=== PATIENT | male | born 1950 | race American Indian/Alaskan Native ===

== ENCOUNTER 2016-12-20 09:15 | Emergency (ER) | payer MEDICARE, MEDICAID, OTHER ==
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
[2016-12-20] MEDS ORDERED: Sodium Chloride 0.9% 1,000 ML IV SCH (09:45)
[2016-12-20 10:20] LABS: CHLORIDE,CL 101 mmol/L (101-111); SODIUM,NA 140 mmol/L (135-145)
--- NOTE | 2017-01-30 14:57 | EKG ---
12/20/2016 - SIXTO CALDWELL - This is a standard 12-lead EKG showing normal sinus rhythm with ventricular rate 68 beats per minute. Normal NE interval and QRS duration. Normal axis. No acute ST-T changes. [facility] /[id number]
== END 2016-12-20 10:47 | disposition home or self-care (01) ==
LOC: DL.ED 09:15
DX: R53.1 Weakness (principal); R31.21 Asymptomatic microscopic hematuria; I10 Essential (primary) hypertension; F17.210 Nicotine dependence, cigarettes, uncomplicated; Z79.899 Other long term (current) drug therapy
CPT/HCPCS: 36415; 71020; 80053; 81001; 84484; 85025; 93005; 93010; 99285; J7030; 88112; 99284

== ENCOUNTER 2016-12-21 15:24 | Emergency (ER) | payer MEDICARE, MEDICAID, OTHER ==
[2016-12-21] MEDS ORDERED: Sodium Chloride 0.9% 10 ML Syringe FLUSH PRN (16:12)
[2016-12-21 16:45] LABS: CHLORIDE,CL 104 mmol/L (101-111); SODIUM,NA 141 mmol/L (135-145)
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
[2016-12-21] MEDS ORDERED: Sodium Chloride 0.9% 500 ML IV ONE (17:18)
[2016-12-21] MEDS ORDERED: Meclizine 12.5 MG Tab PO ONE (17:18)
--- NOTE | 2016-12-28 12:21 | EKG ---
12/21/2016 - SIXTO CALDWELL - This 12-lead EKG shows a normal sinus rhythm with a ventricular rate of 67. Normal axis and intervals. No acute ST-segment or T-wave changes. [facility] /[id number]
== END 2016-12-21 17:50 | disposition home or self-care (01) ==
LOC: DL.ED 15:24
DX: R55 Syncope and collapse (principal); F17.210 Nicotine dependence, cigarettes, uncomplicated; I10 Essential (primary) hypertension; Z79.899 Other long term (current) drug therapy
CPT/HCPCS: 36415; 70450; 80053; 84484; 85025; 93005; 93010; 99285; A9270; 99284

== ENCOUNTER 2016-12-28 08:15 | Emergency (ER) | payer MEDICARE, MEDICAID, OTHER ==
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
[2016-12-28 09:24] LABS: CHLORIDE,CL 99 mmol/L (101-111); SODIUM,NA 137 mmol/L (135-145)
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
--- NOTE | 2016-12-29 11:13 | EKG ---
12/28/2016 - SXITO CALDWELL R - TIME: 08:48 a.m. FINDINGS: The EKG shows normal sinus rhythm. [facility] /[id number]
== END 2016-12-28 10:05 | disposition home or self-care (01) ==
LOC: DL.ED 08:15
DX: R42 Dizziness and giddiness (principal); I10 Essential (primary) hypertension; Z87.891 Personal history of nicotine dependence; Z79.899 Other long term (current) drug therapy
CPT/HCPCS: 36415; 71010; 80053; 80305; 81001; 84484; 85025; 85379; 93005; 93010; 99284; 99285

== ENCOUNTER 2017-01-04 14:17 | Emergency (ER) | payer MEDICARE, MEDICAID, OTHER ==
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
[2017-01-04] MEDS ORDERED: Meclizine 12.5 MG Tab PO ONE ×2 (14:45→14:48)
--- NOTE | 2017-01-05 16:22 | EKG ---
01/04/2017 - SIXTO CALDWELL I reviewed the EKG and agree with the machine reading. [facility] /[id number]
== END 2017-01-04 15:04 | disposition left against medical advice (07) ==
LOC: DL.ED 14:17
DX: R42 Dizziness and giddiness (principal); I10 Essential (primary) hypertension; Z87.891 Personal history of nicotine dependence; Z79.899 Other long term (current) drug therapy
CPT/HCPCS: 93005; 93010; 99284

== ENCOUNTER 2018-05-24 23:27 | Emergency (ER) | payer MEDICAID, MEDICARE ==
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
[2018-05-25 00:55] LABS: ANION GAP 12.7; CHLORIDE,CL 96 mmol/L (101-111); SODIUM,NA 129 mmol/L (135-145)
[2018-05-25] MEDS ORDERED: Sodium Chloride 0.9% 1,000 ML IV ONE (01:57)
== END 2018-05-25 02:28 ==
LOC: DL.ED 23:27
DX: R56.9 Unspecified convulsions (principal); I10 Essential (primary) hypertension; Z79.899 Other long term (current) drug therapy
CPT/HCPCS: 36415; 70450; 71045; 80053; 80305; 81001; 83605; 84484; 85025; 87040; 93005; 99285; G0480; J7030

== ENCOUNTER 2019-07-09 19:06 | Emergency (ER) | payer MEDICARE ==
[2019-07-09] MEDS: MVI, Adult with Vitamin K 10 ML, Folic Acid 1 MG, Thiamine 100 MG in Lactated Ringers 1... IV ONE ×4 (19:14)
[2019-07-09] MEDS: Sodium Chloride 0.9% 10 ML Syringe FLUSH PRN (19:15)
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
[2019-07-09 19:39] LABS: ANION GAP 12.1 mEq/L (7-13); CHLORIDE,CL 99 mmol/L (98-107); SODIUM,NA 136 mmol/L (136-145)
[2019-07-09] MEDS: Midazolam 1 MG/ML 2 ML SDV IVPUSH ONE (20:33)
[2019-07-09] MEDS ORDERED: Propofol 200 MG/20 ML SDV IV ONE (23:59)
[2019-07-10] MEDS: Sodium Chloride 0.9% 1,000 ML IV ONE (00:30)
== END 2019-07-10 02:36 ==
LOC: DL.ED 19:06
DX: S43.015A Anterior dislocation of left humerus, initial encounter (principal); S00.81XA Abrasion of other part of head, initial encounter; F10.129 Alcohol abuse with intoxication, unspecified; Y90.8 Blood alcohol level of 240 mg/100 ml or more; I10 Essential (primary) hypertension; Z79.899 Other long term (current) drug therapy
CPT/HCPCS: 23650; 36415; 70450; 72125; 73020; 73030; 80053; 80305; 80307; 81001; 85025; 96361; 96365; 96375; 99152; 99153; 99284; J2250; J2704; J3411; J7030; J7120; J3490

== ENCOUNTER 2021-09-29 18:04 | Emergency (ER) | payer MEDICARE ==
[2021-09-29 19:20] LABS: ANION GAP 11.7 mEq/L (7-13); CHLORIDE,CL 101 mmol/L (98-107); SODIUM,NA 135 mmol/L (136-145)
[2021-09-29 19:28] LABS: ESTIMATED GFR 81 mL/min (>=60)
[2021-09-29 19:30] LABS: ACETAMINOPHEN < 0 ug/mL (10-30 (Therapeutic))
[2021-09-29 20:11] LABS: AMPHETAMINES,URINE NEGATIVE (NEGATIVE); BARBITURATES,URINE NEGATIVE (NEGATIVE); BENZODIAZEPINE,URINE NEGATIVE (NEGATIVE); MDMA (ECSTASY), URINE NEGATIVE (NEGATIVE); METHADONE,URINE NEGATIVE (NEGATIVE); METHAMPHETAMINES,URINE NEGATIVE (NEGATIVE); OPIATES,URINE NEGATIVE (NEGATIVE); OXYCODONE,URINE NEGATIVE (NEGATIVE); PHENCYCLIDINE,URINE NEGATIVE (NEGATIVE); TCA,URINE NEGATIVE (NEGATIVE)
[2021-09-29] MEDS ORDERED: Iopamidol 612 MG/ML 100 ML Bottle IVPUSH ONE (20:21)
[2021-09-29] MEDS ORDERED: Sodium Chloride 0.9% 1,000 ML IV ONE (20:21)
[2021-09-29] MEDS ORDERED: Famotidine 20 MG/2 ML SDV IVPUSH ONE (20:21)
[2021-09-29] MEDS ORDERED: Ketorolac 30 MG/ML SDV IVPUSH ONE (21:25)
== END 2021-09-30 00:20 | disposition home or self-care (01) ==
LOC: DL.ED 18:04
DX: K70.30 Alcoholic cirrhosis of liver without ascites (principal); K21.9 Gastro-esophageal reflux disease without esophagitis; R11.0 Nausea; I10 Essential (primary) hypertension; Z79.899 Other long term (current) drug therapy; Z20.822 Contact with and (suspected) exposure to COVID-19
CPT/HCPCS: 36415; 71260; 73090; 74177; 80053; 80143; 80179; 80305; 80307; 81001; 82140; 82150; 83605; 83690; 84484; 85025; 85379; 86140; 87040; 93005; 93010; 96361; 96374; 96375; 99284; J1885; J3490; J7030; Q9967; U0002

== ENCOUNTER 2021-10-19 22:08 | Inpatient (IN) | payer MEDICARE ==
[2021-10-19 23:52] LABS: ANION GAP 14.2 mEq/L (7-13); CHLORIDE,CL 98 mmol/L (98-107); SODIUM,NA 132 mmol/L (136-145)
[2021-10-19 23:54] LABS: ESTIMATED GFR 94 mL/min (>=60)
[2021-10-20 02:11] LABS: AMPHETAMINES,URINE NEGATIVE (NEGATIVE); BARBITURATES,URINE NEGATIVE (NEGATIVE); BENZODIAZEPINE,URINE NEGATIVE (NEGATIVE); MDMA (ECSTASY), URINE NEGATIVE (NEGATIVE); METHADONE,URINE NEGATIVE (NEGATIVE); METHAMPHETAMINES,URINE NEGATIVE (NEGATIVE); OPIATES,URINE NEGATIVE (NEGATIVE); OXYCODONE,URINE NEGATIVE (NEGATIVE); PHENCYCLIDINE,URINE NEGATIVE (NEGATIVE); TCA,URINE NEGATIVE (NEGATIVE)
[2021-10-20] MEDS ORDERED: Ondansetron 4 MG/2 ML SDV IVPUSH PRN (05:59)
[2021-10-20] MEDS ORDERED: Albuterol/Ipratropium 3.0-0.5 MG/3 ML Neb Soln NEB PRN (05:59)
[2021-10-20] MEDS ORDERED: Docusate Sodium 100 MG Cap PO PRN (05:59)
[2021-10-20] MEDS ORDERED: Acetaminophen 325 MG Tab PO PRN (05:59)
[2021-10-20] MEDS ORDERED: Melatonin 3 MG Tab PO PRN (06:04)
[2021-10-20] MEDS ORDERED: Calcium Carbonate 500 MG Tab.Chew PO PRN (06:05)
[2021-10-20] MEDS: Acetaminophen/HYDROcodone 325-5 MG Tab PO PRN ×2 (06:34→19:25)
[2021-10-20] MEDS: Enoxaparin 40 MG/0.4 ML Syringe SUBCUT SCH (08:36)
[2021-10-20] MEDS: Lisinopril 10 MG Tab PO SCH (12:39)
[2021-10-20] MEDS: Nicotine 14 MG/24 Hr Patch TRDERM SCH (12:39)
[2021-10-21] MEDS: Acetaminophen/HYDROcodone 325-5 MG Tab PO PRN ×3 (00:34→23:57)
[2021-10-21 07:12] LABS: ANION GAP 12.2 mEq/L (7-13)
[2021-10-21] MEDS: Lisinopril 10 MG Tab PO SCH (08:41)
[2021-10-21] MEDS: Enoxaparin 40 MG/0.4 ML Syringe SUBCUT SCH (08:43)
[2021-10-21] MEDS: Nicotine 14 MG/24 Hr Patch TRDERM SCH (08:43)
[2021-10-21] MEDS ORDERED: Temazepam 15 MG Cap PO PRN (23:04)
[2021-10-21] MEDS ORDERED: diphenhydrAMINE 50 MG/ML SDV IVPUSH ONE (23:05)
[2021-10-22] MEDS: Nicotine 14 MG/24 Hr Patch TRDERM SCH (08:22)
[2021-10-22] MEDS: Lisinopril 10 MG Tab PO SCH (08:23)
[2021-10-22] MEDS: Enoxaparin 40 MG/0.4 ML Syringe SUBCUT SCH (08:24)
== END 2021-10-22 11:40 | disposition home or self-care (01) | DRG 557 ==
LOC: DL.ED 22:08 → DL.MS 10-20 03:44
PROVIDERS: ADMIT Internal Medicine; ATTEND Internal Medicine
DX: M62.50 Muscle wasting and atrophy, not elsewhere classified, unspecified site (principal); R53.1 Weakness; R62.7 Adult failure to thrive; U07.1 COVID-19; S09.8XXA Other specified injuries of head, initial encounter; W19.XXXA Unspecified fall, initial encounter; E87.1 Hypo-osmolality and hyponatremia; I10 Essential (primary) hypertension; F17.210 Nicotine dependence, cigarettes, uncomplicated; E88.09 Other disorders of plasma-protein metabolism, not elsewhere classified; F12.10 Cannabis abuse, uncomplicated; K57.90 Diverticulosis of intestine, part unspecified, without perforation or abscess without bleeding; J44.9 Chronic obstructive pulmonary disease, unspecified; K21.9 Gastro-esophageal reflux disease without esophagitis; K70.30 Alcoholic cirrhosis of liver without ascites; M54.9 Dorsalgia, unspecified; G89.29 Other chronic pain; H54.7 Unspecified visual loss; Z79.899 Other long term (current) drug therapy
CPT/HCPCS: 36415 ×2; 70450; 71045; 80053; 80305; 80307; 83605; 84484; 85025; 85379; 93005; 99285; U0002; 80048; 81001; 82140; 82306; 82550; 93010; 97161-GP; 97166-GO; 99222; 99232; 99238; 99284; A9270-GY; J1200; J1650

== ENCOUNTER 2021-10-30 09:42 | Inpatient (IN) | payer MEDICARE, MEDICAID ==
[2021-10-30] MEDS ORDERED: Sodium Chloride 0.9% 1,000 ML IV ONE ×2 (09:55→10:44)
[2021-10-30] MEDS: Sodium Chloride 0.9% 10 ML Syringe FLUSH PRN (10:09)
[2021-10-30 10:41] LABS: ALLEN TEST PERFORMED; O2 DELIVERY DEVICE ROOM AIR
[2021-10-30 10:42] LABS: BASE EXCESS ARTERIAL 4 mmol/L ((-2)-(+3)); BICARBONATE,ARTERIAL 20.1 mmol/L (22-26); O2 SATURATION ARTERIAL 98 % (95-100); PCO2 ARTERIAL 30 mmHg (35-45); PO2 ARTERIAL 93 mmHg (70-100)
[2021-10-30 10:56] LABS: ANION GAP 15.8 mEq/L (7-13); CHLORIDE,CL 98 mmol/L (98-107); SODIUM,NA 135 mmol/L (136-145)
[2021-10-30 10:59] LABS: ESTIMATED GFR 83 mL/min (>=60)
[2021-10-30] MEDS ORDERED: cefTRIAXone 2 GM in Sodium Chloride 0.9% 100 ML IV ONE (11:16)
[2021-10-30 11:25] LABS: AMPHETAMINES,URINE NEGATIVE (NEGATIVE); BARBITURATES,URINE NEGATIVE (NEGATIVE); BENZODIAZEPINE,URINE NEGATIVE (NEGATIVE); MDMA (ECSTASY), URINE NEGATIVE (NEGATIVE); METHADONE,URINE NEGATIVE (NEGATIVE); METHAMPHETAMINES,URINE NEGATIVE (NEGATIVE); OPIATES,URINE NEGATIVE (NEGATIVE); OXYCODONE,URINE NEGATIVE (NEGATIVE); PHENCYCLIDINE,URINE NEGATIVE (NEGATIVE); TCA,URINE NEGATIVE (NEGATIVE)
[2021-10-30] MEDS: Gentamicin 0.3% Ophth Soln 5 ML Bottle EYEBOTH SCH ×2 (12:39→20:57)
[2021-10-30] MEDS: Sodium Chloride 0.9% 1,000 ML IV SCH ×2 (12:41→21:03)
[2021-10-30] MEDS ORDERED: Polyethylene Glycol 3350 Powder 17 GM Packet PO PRN (13:33)
[2021-10-30] MEDS ORDERED: HYDROmorphone 0.5 MG/0.5 ML Syringe IVPUSH PRN (13:33)
[2021-10-30] MEDS ORDERED: Ondansetron 4 MG/2 ML SDV IVPUSH PRN (13:33)
[2021-10-30] MEDS ORDERED: Ketorolac 30 MG/ML SDV IVPUSH PRN (13:33)
[2021-10-30] MEDS ORDERED: Magnesium Hydroxide 400 MG/5 ML Susp 30 ML Cup PO PRN (13:33)
[2021-10-30] MEDS ORDERED: Albuterol/Ipratropium 3.0-0.5 MG/3 ML Neb Soln NEB PRN (13:33)
[2021-10-30] MEDS: Acetaminophen/HYDROcodone 325-5 MG Tab PO PRN (17:07)
[2021-10-30] MEDS: Ergocalciferol (Vitamin D2) 1.25 MG Cap PO SCH (17:07)
[2021-10-30] MEDS: Saccharomyces Boulardii (Probiotic) 250 MG Cap PO SCH (20:56)
[2021-10-30] MEDS: Bacitracin/Neomycin/Polymyxin B Oint 28.4 GM Tube TOP SCH (21:05)
[2021-10-31] MEDS: Sodium Chloride 0.9% 1,000 ML IV SCH (05:37)
[2021-10-31 07:12] LABS: ANION GAP 14.5 mEq/L (7-13)
[2021-10-31] MEDS ORDERED: Magnesium Sulfate/Water 2 GM in Premix Bag 1 BAG IV ONE (08:07)
[2021-10-31] MEDS: Saccharomyces Boulardii (Probiotic) 250 MG Cap PO SCH ×2 (09:25→21:32)
[2021-10-31] MEDS: cefTRIAXone 1 GM in Sodium Chloride 0.9% 50 ML IV SCH (09:25)
[2021-10-31] MEDS: Acetaminophen/HYDROcodone 325-5 MG Tab PO PRN ×2 (09:41→16:11)
[2021-10-31] MEDS: Bacitracin/Neomycin/Polymyxin B Oint 28.4 GM Tube TOP SCH ×2 (09:44→21:33)
[2021-10-31] MEDS: Gentamicin 0.3% Ophth Soln 5 ML Bottle EYEBOTH SCH ×3 (09:47→21:33)
[2021-10-31] MEDS: Nicotine 21 MG/24 Hr Patch TRDERM SCH (10:10)
[2021-10-31] MEDS: Check Patch TRDERM SCH (21:36)
[2021-11-01 07:14] LABS: ANION GAP 15.2 mEq/L (7-13)
[2021-11-01] MEDS ORDERED: Potassium Chloride 10 MEQ Tab.ER PO ONE (08:16)
[2021-11-01] MEDS: Sodium Chloride 0.9% 10 ML Syringe FLUSH PRN (08:36)
[2021-11-01] MEDS: cefTRIAXone 1 GM in Sodium Chloride 0.9% 50 ML IV SCH (08:37)
[2021-11-01] MEDS: Saccharomyces Boulardii (Probiotic) 250 MG Cap PO SCH ×2 (08:39→21:22)
[2021-11-01] MEDS: Nicotine 21 MG/24 Hr Patch TRDERM SCH (08:39)
[2021-11-01] MEDS: Gentamicin 0.3% Ophth Soln 5 ML Bottle EYEBOTH SCH ×3 (08:44→21:22)
[2021-11-01] MEDS: Bacitracin/Neomycin/Polymyxin B Oint 28.4 GM Tube TOP SCH ×2 (08:45→21:22)
[2021-11-01] MEDS: Check Patch TRDERM SCH (21:23)
[2021-11-02 06:41] LABS: ANION GAP 12.6 mEq/L (7-13)
[2021-11-02] MEDS ORDERED: Potassium Chloride 10 MEQ Tab.ER PO SCH (08:00)
[2021-11-02] MEDS: cefTRIAXone 1 GM in Sodium Chloride 0.9% 50 ML IV SCH (08:16)
[2021-11-02] MEDS: Nicotine 21 MG/24 Hr Patch TRDERM SCH (08:17)
[2021-11-02] MEDS: Saccharomyces Boulardii (Probiotic) 250 MG Cap PO SCH ×2 (08:17→20:41)
[2021-11-02] MEDS: Bacitracin/Neomycin/Polymyxin B Oint 28.4 GM Tube TOP SCH ×2 (08:18→20:48)
[2021-11-02] MEDS: Gentamicin 0.3% Ophth Soln 5 ML Bottle EYEBOTH SCH ×3 (08:20→20:47)
[2021-11-02] MEDS: Acetaminophen/HYDROcodone 325-5 MG Tab PO PRN (20:42)
[2021-11-02] MEDS: Check Patch TRDERM SCH (20:50)
[2021-11-03 06:46] LABS: ANION GAP 11.2 mEq/L (7-13)
[2021-11-03] MEDS: Saccharomyces Boulardii (Probiotic) 250 MG Cap PO SCH ×2 (08:28→22:08)
[2021-11-03] MEDS: Acetaminophen 325 MG Tab PO PRN (08:28)
[2021-11-03] MEDS: Bacitracin/Neomycin/Polymyxin B Oint 28.4 GM Tube TOP SCH ×2 (08:29→22:08)
[2021-11-03] MEDS: cefTRIAXone 1 GM in Sodium Chloride 0.9% 50 ML IV SCH (08:30)
[2021-11-03] MEDS: Gentamicin 0.3% Ophth Soln 5 ML Bottle EYEBOTH SCH ×3 (08:30→22:08)
[2021-11-03] MEDS: Nicotine 21 MG/24 Hr Patch TRDERM SCH (08:32)
[2021-11-03] MEDS: Acetaminophen/HYDROcodone 325-5 MG Tab PO PRN (19:35)
[2021-11-03] MEDS: Check Patch TRDERM SCH (22:09)
[2021-11-03] MEDS: Sodium Chloride 0.9% 10 ML Syringe FLUSH PRN (22:11)
[2021-11-04] MEDS: Nicotine 21 MG/24 Hr Patch TRDERM SCH (08:49)
[2021-11-04] MEDS: Saccharomyces Boulardii (Probiotic) 250 MG Cap PO SCH ×2 (08:50→20:20)
[2021-11-04] MEDS: Acetaminophen/HYDROcodone 325-5 MG Tab PO PRN ×2 (08:56→20:21)
[2021-11-04] MEDS: Bacitracin/Neomycin/Polymyxin B Oint 28.4 GM Tube TOP SCH ×2 (08:56→20:22)
[2021-11-04] MEDS: Gentamicin 0.3% Ophth Soln 5 ML Bottle EYEBOTH SCH ×3 (08:56→20:22)
[2021-11-04] MEDS: Check Patch TRDERM SCH (20:21)
[2021-11-05] MEDS: Bacitracin/Neomycin/Polymyxin B Oint 28.4 GM Tube TOP SCH ×2 (09:51→20:32)
[2021-11-05] MEDS: Gentamicin 0.3% Ophth Soln 5 ML Bottle EYEBOTH SCH (09:52)
[2021-11-05] MEDS: Saccharomyces Boulardii (Probiotic) 250 MG Cap PO SCH (09:52)
[2021-11-05] MEDS: Nicotine 21 MG/24 Hr Patch TRDERM SCH (09:53)
[2021-11-05] MEDS: Acetaminophen/HYDROcodone 325-5 MG Tab PO PRN ×2 (10:47→20:32)
[2021-11-05] MEDS: Check Patch TRDERM SCH (20:33)
[2021-11-06] MEDS: Acetaminophen/HYDROcodone 325-5 MG Tab PO PRN ×2 (07:52→21:26)
[2021-11-06] MEDS: Bacitracin/Neomycin/Polymyxin B Oint 28.4 GM Tube TOP SCH ×2 (09:08→21:27)
[2021-11-06] MEDS: Nicotine 21 MG/24 Hr Patch TRDERM SCH (09:08)
[2021-11-06] MEDS: Ergocalciferol (Vitamin D2) 1.25 MG Cap PO SCH (09:08)
[2021-11-06] MEDS: Check Patch TRDERM SCH (21:28)
[2021-11-07] MEDS: Acetaminophen/HYDROcodone 325-5 MG Tab PO PRN ×2 (08:48→22:04)
[2021-11-07] MEDS: Nicotine 21 MG/24 Hr Patch TRDERM SCH (08:50)
[2021-11-07] MEDS: Bacitracin/Neomycin/Polymyxin B Oint 28.4 GM Tube TOP SCH ×2 (08:53→21:52)
[2021-11-07] MEDS: Check Patch TRDERM SCH (21:39)
[2021-11-08] MEDS: Bacitracin/Neomycin/Polymyxin B Oint 28.4 GM Tube TOP SCH ×2 (09:21→21:04)
[2021-11-08] MEDS: Nicotine 21 MG/24 Hr Patch TRDERM SCH (09:21)
[2021-11-08] MEDS: Acetaminophen/HYDROcodone 325-5 MG Tab PO PRN ×2 (16:22→21:04)
[2021-11-08] MEDS: Check Patch TRDERM SCH (20:55)
[2021-11-09] MEDS: Nicotine 21 MG/24 Hr Patch TRDERM SCH (09:10)
[2021-11-09] MEDS: Bacitracin/Neomycin/Polymyxin B Oint 28.4 GM Tube TOP SCH ×2 (09:11→21:39)
[2021-11-09] MEDS: Acetaminophen 325 MG Tab PO PRN (13:14)
[2021-11-09] MEDS: Acetaminophen/HYDROcodone 325-5 MG Tab PO PRN ×2 (17:09→21:37)
[2021-11-09] MEDS: Check Patch TRDERM SCH (21:39)
[2021-11-10] MEDS: Acetaminophen/HYDROcodone 325-5 MG Tab PO PRN (08:50)
[2021-11-10] MEDS: Nicotine 21 MG/24 Hr Patch TRDERM SCH (08:51)
[2021-11-10] MEDS: Bacitracin/Neomycin/Polymyxin B Oint 28.4 GM Tube TOP SCH ×2 (08:52→20:14)
[2021-11-10] MEDS: Check Patch TRDERM SCH (20:15)
[2021-11-11] MEDS: Acetaminophen/HYDROcodone 325-5 MG Tab PO PRN ×3 (00:21→14:35)
[2021-11-11] MEDS: Acetaminophen 325 MG Tab PO PRN (04:22)
[2021-11-11] MEDS: Nicotine 21 MG/24 Hr Patch TRDERM SCH (08:38)
[2021-11-11] MEDS: Bacitracin/Neomycin/Polymyxin B Oint 28.4 GM Tube TOP SCH ×2 (08:42→20:27)
[2021-11-11 10:32] LABS: ANION GAP 9.1 mEq/L (7-13)
[2021-11-11] MEDS: hydrOXYzine HCl 25 MG Tab PO PRN ×2 (15:02→20:26)
[2021-11-11] MEDS: Check Patch TRDERM SCH (22:14)
[2021-11-12] MEDS: Acetaminophen/HYDROcodone 325-5 MG Tab PO PRN ×3 (08:58→20:39)
[2021-11-12] MEDS: hydrOXYzine HCl 25 MG Tab PO PRN ×3 (08:59→20:39)
[2021-11-12] MEDS: Nicotine 21 MG/24 Hr Patch TRDERM SCH (09:00)
[2021-11-12] MEDS: Bacitracin/Neomycin/Polymyxin B Oint 28.4 GM Tube TOP SCH ×2 (09:04→20:35)
[2021-11-12] MEDS: Check Patch TRDERM SCH (20:35)
[2021-11-13] MEDS: hydrOXYzine HCl 25 MG Tab PO PRN (04:06)
[2021-11-13] MEDS: Nicotine 21 MG/24 Hr Patch TRDERM SCH (08:41)
[2021-11-13] MEDS: Ergocalciferol (Vitamin D2) 1.25 MG Cap PO SCH (08:42)
[2021-11-13] MEDS: Bacitracin/Neomycin/Polymyxin B Oint 28.4 GM Tube TOP SCH ×2 (08:44→20:21)
[2021-11-13] MEDS: Check Patch TRDERM SCH (20:21)
[2021-11-13] MEDS: Acetaminophen/HYDROcodone 325-5 MG Tab PO PRN (20:31)
[2021-11-13] MEDS ORDERED: hydrOXYzine HCl 25 MG Tab PO ONE (23:31)
[2021-11-14] MEDS: Bacitracin/Neomycin/Polymyxin B Oint 28.4 GM Tube TOP SCH ×2 (08:50→21:02)
[2021-11-14] MEDS: hydrOXYzine HCl 25 MG Tab PO PRN ×2 (08:50→21:02)
[2021-11-14] MEDS: Nicotine 21 MG/24 Hr Patch TRDERM SCH (08:50)
[2021-11-14] MEDS ORDERED: NICOTINE GUM PO PRN (16:16)
[2021-11-14] MEDS: Acetaminophen/HYDROcodone 325-5 MG Tab PO PRN (21:02)
[2021-11-14] MEDS: Check Patch TRDERM SCH (21:04)
[2021-11-15] MEDS: Acetaminophen/HYDROcodone 325-5 MG Tab PO PRN ×3 (03:01→18:35)
[2021-11-15] MEDS: hydrOXYzine HCl 25 MG Tab PO PRN (05:36)
[2021-11-15] MEDS: Nicotine 21 MG/24 Hr Patch TRDERM SCH (08:49)
[2021-11-15] MEDS: Bacitracin/Neomycin/Polymyxin B Oint 28.4 GM Tube TOP SCH ×2 (08:54→21:15)
[2021-11-15] MEDS: Check Patch TRDERM SCH (21:16)
[2021-11-15] MEDS: Enoxaparin 40 MG/0.4 ML Syringe SUBCUT SCH (21:22)
[2021-11-16] MEDS: hydrOXYzine HCl 25 MG Tab PO PRN ×3 (04:04→20:55)
[2021-11-16] MEDS: Nicotine 21 MG/24 Hr Patch TRDERM SCH (08:03)
[2021-11-16] MEDS: Enoxaparin 40 MG/0.4 ML Syringe SUBCUT SCH (08:04)
[2021-11-16] MEDS: Bacitracin/Neomycin/Polymyxin B Oint 28.4 GM Tube TOP SCH ×2 (08:06→20:55)
[2021-11-16] MEDS ORDERED: Emollient Combination No.71 177 ML Bottle TOP PRN ×2 (11:55→13:48)
[2021-11-16] MEDS: Check Patch TRDERM SCH (20:52)
[2021-11-16] MEDS: Acetaminophen/HYDROcodone 325-5 MG Tab PO PRN (21:59)
[2021-11-17] MEDS: Enoxaparin 40 MG/0.4 ML Syringe SUBCUT SCH (10:09)
[2021-11-17] MEDS: Nicotine 21 MG/24 Hr Patch TRDERM SCH (10:09)
[2021-11-17] MEDS: Bacitracin/Neomycin/Polymyxin B Oint 28.4 GM Tube TOP SCH (10:10)
[2021-11-17] MEDS: Acetaminophen/HYDROcodone 325-5 MG Tab PO PRN (10:20)
[2021-11-17] MEDS: hydrOXYzine HCl 25 MG Tab PO PRN (10:21)
== END 2021-11-17 14:00 | disposition swing bed (61) | DRG 689 ==
LOC: DL.ED 09:42 → DL.MS 13:14
PROVIDERS: ADMIT Internal Medicine; ATTEND Internal Medicine
DX: N30.00 Acute cystitis without hematuria (principal); R53.1 Weakness; E43 Unspecified severe protein-calorie malnutrition; R64 Cachexia; Z68.1 Body mass index [BMI] 19.9 or less, adult; E87.1 Hypo-osmolality and hyponatremia; F12.90 Cannabis use, unspecified, uncomplicated; F17.200 Nicotine dependence, unspecified, uncomplicated; E87.6 Hypokalemia; E83.42 Hypomagnesemia; R26.9 Unspecified abnormalities of gait and mobility; M43.16 Spondylolisthesis, lumbar region; E55.9 Vitamin D deficiency, unspecified; E88.09 Other disorders of plasma-protein metabolism, not elsewhere classified; K21.9 Gastro-esophageal reflux disease without esophagitis; M54.9 Dorsalgia, unspecified; R62.7 Adult failure to thrive; J44.9 Chronic obstructive pulmonary disease, unspecified; G89.29 Other chronic pain; I10 Essential (primary) hypertension; K57.90 Diverticulosis of intestine, part unspecified, without perforation or abscess without bleeding; M25.9 Joint disorder, unspecified; Z86.16 Personal history of COVID-19; Z28.82 Immunization not carried out because of caregiver refusal; Z79.899 Other long term (current) drug therapy
CPT/HCPCS: 36415; 36600; 73120-RT; 80048; 80053; 80305-QW; 81001; 82803; 82977; 83605; 83735; 84439; 84443; 85025; 85610; 86140; 87040; 87086; 93005; 93010; 96361; 96365; 97110-GP; 97161-GP; 97166-GO; 97530-GO; 99284; 99285-25; A9270-GY; J0696; J1650; J1885; J3475; J3490; J7030

== ENCOUNTER 2021-11-17 12:01 | Inpatient (IN) | payer MEDICARE, MEDICAID ==
[2021-11-17] MEDS ORDERED: NICOTINE GUM PO PRN (14:04)
[2021-11-17] MEDS ORDERED: Magnesium Hydroxide 400 MG/5 ML Susp 30 ML Cup PO PRN (14:04)
[2021-11-17] MEDS ORDERED: Albuterol/Ipratropium 3.0-0.5 MG/3 ML Neb Soln NEB PRN (14:04)
[2021-11-17] MEDS ORDERED: Polyethylene Glycol 3350 Powder 17 GM Packet PO PRN (14:04)
[2021-11-17] MEDS ORDERED: Emollient Combination No.71 177 ML Bottle TOP PRN (14:04)
[2021-11-17] MEDS ORDERED: Acetaminophen 325 MG Tab PO PRN (14:04)
[2021-11-17] MEDS: Check Patch TRDERM SCH (21:00)
[2021-11-17] MEDS: Acetaminophen/HYDROcodone 325-5 MG Tab PO PRN (22:33)
[2021-11-17] MEDS: hydrOXYzine HCl 25 MG Tab PO PRN (22:38)
[2021-11-17] MEDS: Bacitracin/Neomycin/Polymyxin B Oint 28.4 GM Tube TOP SCH (22:38)
[2021-11-18] MEDS: hydrOXYzine HCl 25 MG Tab PO PRN ×2 (06:23→23:00)
[2021-11-18] MEDS: Acetaminophen/HYDROcodone 325-5 MG Tab PO PRN ×3 (06:23→23:00)
[2021-11-18] MEDS: Enoxaparin 40 MG/0.4 ML Syringe SUBCUT SCH (08:44)
[2021-11-18] MEDS: Bacitracin/Neomycin/Polymyxin B Oint 28.4 GM Tube TOP SCH ×2 (08:45→23:01)
[2021-11-18] MEDS: Nicotine 21 MG/24 Hr Patch TRDERM SCH (08:45)
[2021-11-18] MEDS: Check Patch TRDERM SCH (23:00)
[2021-11-19] MEDS ORDERED: Carvedilol 3.125 MG Tab PO SCH (08:45)
[2021-11-19] MEDS: Acetaminophen/HYDROcodone 325-5 MG Tab PO PRN (08:45)
[2021-11-19] MEDS: hydrOXYzine HCl 25 MG Tab PO PRN (08:45)
[2021-11-19] MEDS: Bacitracin/Neomycin/Polymyxin B Oint 28.4 GM Tube TOP SCH (08:46)
[2021-11-19] MEDS: Enoxaparin 40 MG/0.4 ML Syringe SUBCUT SCH (08:47)
[2021-11-19] MEDS: Nicotine 21 MG/24 Hr Patch TRDERM SCH (08:48)
[2021-11-20] MEDS ORDERED: Ergocalciferol (Vitamin D2) 1.25 MG Cap PO SCH (09:00)
== END 2021-11-19 11:30 | DRG 947 ==
LOC: DL.MS 16:37
PROVIDERS: ADMIT Internal Medicine; ATTEND Internal Medicine
DX: R53.1 Weakness (principal); E43 Unspecified severe protein-calorie malnutrition; R64 Cachexia; N39.0 Urinary tract infection, site not specified; E87.1 Hypo-osmolality and hyponatremia; Z68.1 Body mass index [BMI] 19.9 or less, adult; R62.51 Failure to thrive (child); Z20.822 Contact with and (suspected) exposure to COVID-19; E55.9 Vitamin D deficiency, unspecified; E88.09 Other disorders of plasma-protein metabolism, not elsewhere classified; F12.90 Cannabis use, unspecified, uncomplicated; M62.50 Muscle wasting and atrophy, not elsewhere classified, unspecified site; E83.42 Hypomagnesemia; E87.6 Hypokalemia; F17.200 Nicotine dependence, unspecified, uncomplicated; K57.90 Diverticulosis of intestine, part unspecified, without perforation or abscess without bleeding; R26.81 Unsteadiness on feet; H54.7 Unspecified visual loss; K21.9 Gastro-esophageal reflux disease without esophagitis; M54.9 Dorsalgia, unspecified; G89.29 Other chronic pain; I10 Essential (primary) hypertension; J44.9 Chronic obstructive pulmonary disease, unspecified; Z86.16 Personal history of COVID-19; Z79.899 Other long term (current) drug therapy
CPT/HCPCS: 36415; 83735; 97161-GP; 97165-GO; A9270-GY; J1650; U0002

== ENCOUNTER 2023-09-13 04:18 | Emergency (ER) | payer MEDICARE | END 2023-09-13 07:48 | disposition EXP | LOC: DL.ED 04:18 | DX: I46.9 Cardiac arrest, cause unspecified (principal); I10 Essential (primary) hypertension; J44.9 Chronic obstructive pulmonary disease, unspecified; K21.9 Gastro-esophageal reflux disease without esophagitis; Z86.16 Personal history of COVID-19; Z79.899 Other long term (current) drug therapy | CPT/HCPCS: 92950; 99285-25 ==